=== PATIENT | female | born 1935 | race Caucasian/White ===

== ENCOUNTER 2023-03-07 09:30 | Outpatient (RCR) | payer MEDICARE, SELFPAY ==
--- NOTE | 2023-03-06 09:22 | ONC.NURNOTE ---
Dx: colon cancer with ELEANOR
[2023-03-07 09:35] VITALS: BP 157/81; PULSE 92; RESP 16; TEMP 36.5; O2SAT 98
[2023-03-07 10:22] VITALS: BP 157/81; PULSE 92; RESP 14; TEMP 36.4; O2SAT 98
[2023-03-07 10:39] VITALS: BP 150/75; PULSE 86; RESP 14; TEMP 36.3; O2SAT 98
[2023-03-07 11:24] VITALS: BP 148/73; PULSE 88; RESP 14; TEMP 36.5; O2SAT 99
[2023-03-07 12:24] VITALS: BP 156/78; PULSE 93; RESP 15; TEMP 36.6
[2023-03-07 13:00] VITALS: BP 160/83; PULSE 93; RESP 14; TEMP 36.5; O2SAT 98
--- NOTE | 2023-03-07 15:59 | ONC.NURNOTE ---
Port easily accessed this am with a 3/4 needle and good blood return for lab work. Hung premeds, went well. When starting Red warrior. slight blood return . gave 10cc med. 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 disconnected med and flushed port. pressure with no blood return. a 1 inch was put in. still no blood return. ambulated pt, stretching. no blood return. layed on her lt side. no blood return. infused 700cc hr for 10 min. no blood return. installed Cathflo. no blood return after 34 min. waited another 20 min and great blood return without resistence. rest of chemo given with good blood return and no pressure. flushed with 30cc then pulled.
== END 2023-09-02 23:59 | disposition home or self-care (01) ==
LOC: CCIC 09:30
PROVIDERS: Visit Provider Clinical Nurse Specialist
DX: C18.9 Malignant neoplasm of colon, unspecified (principal); D50.9 Iron deficiency anemia, unspecified
CPT/HCPCS: 36415; 36430; 86850; 86900; 86901; 86922; P9016